=== PATIENT | female | born 1980 | race Asian ===

== ENCOUNTER 2021-10-08 13:09 | Emergency (ER) | payer MEDICAID, OTHER ==
[~2021-10-08] VITALS: Ht 152.4 cm; Wt 72.7 kg
[2021-10-08 13:58] VITALS: BP 178/127
[2021-10-08] MEDS ORDERED: ketorolac tromethamine 15mg/ml inj. IM ONE (15:45)
[2021-10-08] MEDS ORDERED: orphenadrine citrate 60mg/2ml inj. IM ONE (15:45)
[2021-10-08] MEDS ORDERED: IBUP-1985 PO (16:15)
[2021-10-08] MEDS ORDERED: METH-797 PO (16:15)
== END 2021-10-08 16:35 | disposition home or self-care (01) ==
LOC: ER 13:10
DX: S16.1XXA Strain of muscle, fascia and tendon at neck level, initial encounter (principal); M54.50 Low back pain, unspecified; M54.2 Cervicalgia; G89.29 Other chronic pain; Z79.899 Other long term (current) drug therapy; V89.2XXA Person injured in unspecified motor-vehicle accident, traffic, initial encounter; Y93.89 Activity, other specified; Y92.89 Other specified places as the place of occurrence of the external cause; Y99.8 Other external cause status
CPT/HCPCS: 96372; 99284; J1885; J2360